=== PATIENT | female | born 1930 | race Two or more races ===

== ENCOUNTER 2016-12-22 15:06 | Inpatient (IN) | payer MEDICARE, MEDICAID ==
[~2016-12-22] VITALS: Ht 144.8 cm; Wt 95.3 kg
[2016-12-22 17:07] LABS: CLARITY URINE CLOUDY (CLEAR); COLOR URINE DARK YELLOW (YELLOW); GLUCOSE URINE NEGATIVE (NEGATIVE); KETONES URINE TRACE (NEGATIVE); LEUKOCYTE ESTERASE URINE 3+ (NEGATIVE); NITRITE URINE NEGATIVE (NEGATIVE); OCCULT BLOOD URINE 3+ (NEGATIVE); PH URINE 5.5 (4.5-8.0); PROTEIN URINE 1+ (NEGATIVE); SPECIFIC GRAVITY URINE 1.017 (1.005-1.030)
[2016-12-22 17:38] LABS: BASOPHILS % 0.3 % (0.0-2.0); EOSINOPHILS % 1.1 % (0.0-5.0); HEMATOCRIT. 31.6 % (36.0-48.0); HEMOGLOBIN. 10.4 g/dL (12.0-16.0); LYMPHOCYTES % 7.1 % (20.0-50.0); MEAN CORPUSCULAR HEMOGLOBIN 29.9 pg (28.0-32.0); MEAN CORPUSCULAR VOLUME 91.1 fL (81.0-99.0); MEAN PLATELET VOLUME 8.7 fl (7.4-10.4); MONOCYTES % 2.9 % (2.0-8.0); NEUTROPHILS % 88.6 % (40.0-76.0); PLATELET 123 x1000/uL (130-400); RED BLOOD CELL COUNT 3.47 mill/uL (4.2-5.4); RED CELL DISTRIBUTION WIDTH 14.7 % (11.6-14.6)
[2016-12-22 17:39] LABS: CHLORIDE 102 mEq/L (98-107)
[2016-12-22 17:40] LABS: INR 1.1; PROTHROMBIN TIME 11.4 sec
[2016-12-22 17:42] LABS: CARBON DIOXIDE 31 mEq/L (21-32)
[2016-12-22 17:48] LABS: TROPONIN I 0.14 ng/mL (0.00-0.04)
[2016-12-22] MEDS ORDERED: MAGNESIUM 2 G PREMIX 50 ML IV ONE (18:15)
[2016-12-22] MEDS ORDERED: POTASSIUM CHLORIDE 20MEQ TABLET SR PO ONE (18:15)
[2016-12-22] MEDS ORDERED: MAGNESIUM/ALUMINUM HYDROXIDE/SIMETHICONE 30ML UDC PO PRN (19:00)
[2016-12-22] MEDS ORDERED: CLONIDINE 0.1MG TABLET PO PRN (19:00)
[2016-12-22] MEDS ORDERED: HYDROMORPHONE HCL/PF 2MG/ML CPJ IV PRN (19:00)
[2016-12-22] MEDS ORDERED: DOCUSATE SODIUM 100MG CAPSULE PO PRN (19:00)
[2016-12-22] MEDS ORDERED: NA PHOS,M-B/NA PHOS,DI-BA ENEMA 118ML PR PRN (19:00)
[2016-12-22] MEDS ORDERED: LORAZEPAM 2MG/ML CPJ IV PRN (19:00)
[2016-12-22] MEDS ORDERED: IPRATROPIUM/ALBUTEROL 0.5-3(2.5)MG/3ML NEB INH PRN (19:00)
[2016-12-22] MEDS ORDERED: GUAIFENESIN 200MG/10ML SUGAR FREE UDC PO PRN (19:00)
[2016-12-22] MEDS ORDERED: DIPHENHYDRAMINE 50MG/ML VIAL IV PRN (19:00)
[2016-12-22] MEDS ORDERED: HYDROCODONE/ACETAMINOPHEN 5/325MG TABLET PO PRN (19:00)
[2016-12-22] MEDS ORDERED: CEFTRIAXONE 1 G PREMIX 50 ML IV ONE (19:00)
[2016-12-22] MEDS ORDERED: BENAZEPRIL 10MG TABLET PO NR (20:30)
[2016-12-22] MEDS ORDERED: FUROSEMIDE 20MG/2ML VIAL IV NR (21:00)
[2016-12-22] MEDS ORDERED: KCL 20MEQ/100ML PREMIX 100 ML IV NR (21:00)
[2016-12-22 22:17] VITALS: BP 138/78
[2016-12-22 22:18] VITALS: BP 138/78
[2016-12-22] MEDS ORDERED: LEVOFLOXACIN 500MG PREMIX 100 ML IV NR (23:00)
[2016-12-23] VITALS (13 sets, daily range): BP systolic 97–128; BP diastolic 57–77
[2016-12-23] MEDS ORDERED: MECL-109 PO (01:37)
[2016-12-23] MEDS ORDERED: TRAM50TA3 PO (01:37)
[2016-12-23] MEDS ORDERED: COR3 PO (01:37)
[2016-12-23] MEDS ORDERED: MONT10TA21 PO (01:37)
[2016-12-23] MEDS ORDERED: POTA20TA82 PO (01:37)
[2016-12-23] MEDS ORDERED: OMEP20CA10 PO (01:37)
[2016-12-23] MEDS ORDERED: LEVO25TA7 PO (01:37)
[2016-12-23] MEDS ORDERED: FURO-152 PO (01:37)
[2016-12-23] MEDS ORDERED: MELO-58 PO (01:37)
[2016-12-23] MEDS ORDERED: Metolazone PO (01:37)
[2016-12-23] MEDS ORDERED: METO-293 PO ×2 (01:37)
[2016-12-23] MEDS ORDERED: FURO-151 PO (01:37)
[2016-12-23] MEDS ORDERED: RANO500T3 PO (01:37)
[2016-12-23] MEDS ORDERED: HYDR-3992 PO (01:37)
[2016-12-23 02:04] LABS: TROPONIN I 0.11 ng/mL (0.00-0.04)
[2016-12-23 06:31] LABS: HEMATOCRIT. 26.8 % (36.0-48.0); HEMOGLOBIN. 8.7 g/dL (12.0-16.0); MEAN CORPUSCULAR HEMOGLOBIN 29.5 pg (28.0-32.0); MEAN CORPUSCULAR VOLUME 91.2 fL (81.0-99.0); MEAN PLATELET VOLUME 8.6 fl (7.4-10.4); PLATELET 99 x1000/uL (130-400); RED BLOOD CELL COUNT 2.94 mill/uL (4.2-5.4); RED CELL DISTRIBUTION WIDTH 14.7 % (11.6-14.6)
[2016-12-23] MEDS ORDERED: FUROSEMIDE 40MG/4ML VIAL IV SCH (07:15)
[2016-12-23 07:46] LABS: CARBON DIOXIDE 33 mEq/L (21-32); CHLORIDE 104 mEq/L (98-107); HDL CHOLESTEROL 79 mg/dL (40-59); LDL CHOLESTEROL 18 mg/dL (5-100); T4 FREE 0.95 ng/dL (0.76-1.46)
[2016-12-23] MEDS ORDERED: POTASSIUM CHLORIDE 20MEQ TABLET SR PO NR (08:15)
[2016-12-23] MEDS: ENOXAPARIN 30MG/0.3ML SYR SUBCUT SCH (08:36)
[2016-12-23] MEDS: ASPIRIN 81MG EC TABLET PO SCH (08:36)
[2016-12-23 11:28] LABS: PLATELET ESTIMATE DECREASED
[2016-12-23] MEDS: FUROSEMIDE 40MG/4ML VIAL IV SCH (16:54)
[2016-12-24] VITALS (12 sets, daily range): BP systolic 99–134; BP diastolic 58–80
[2016-12-24 00:45] LABS: CREATINE KINASE MB FRACTION 0.9 ng/mL (0.5-3.6); TROPONIN I 0.12 ng/mL (0.00-0.04)
[2016-12-24 08:22] LABS: BASOPHILS % 0.5 % (0.0-2.0); EOSINOPHILS % 1.2 % (0.0-5.0); HEMATOCRIT. 30.7 % (36.0-48.0); LYMPHOCYTES % 8.4 % (20.0-50.0); MEAN CORPUSCULAR HEMOGLOBIN 29.3 pg (28.0-32.0); MONOCYTES % 3.3 % (2.0-8.0); NEUTROPHILS % 86.6 % (40.0-76.0); PLATELET 72 x1000/uL (130-400); RED BLOOD CELL COUNT 3.41 mill/uL (4.2-5.4)
[2016-12-24] MEDS: ENOXAPARIN 30MG/0.3ML SYR SUBCUT SCH (08:38)
[2016-12-24] MEDS: FUROSEMIDE 40MG/4ML VIAL IV SCH ×3 (08:42→17:18)
[2016-12-24] MEDS: ASPIRIN 81MG EC TABLET PO SCH (08:42)
[2016-12-24 09:09] LABS: CREATINE KINASE MB FRACTION 0.7 ng/mL (0.5-3.6); TROPONIN I 0.12 ng/mL (0.00-0.04)
[2016-12-24] MEDS ORDERED: TRAMADOL 50MG TABLET PO SCH (13:15)
[2016-12-24] MEDS ORDERED: MECLIZINE 25MG TABLET PO PRN (13:15)
[2016-12-24] MEDS: LEVOTHYROXINE SODIUM 25MCG TABLET PO SCH (14:23)
[2016-12-24 15:14] LABS: CREATINE KINASE MB FRACTION 0.9 ng/mL (0.5-3.6); TROPONIN I 0.11 ng/mL (0.00-0.04)
[2016-12-24] MEDS ORDERED: MONTELUKAST SODIUM 10MG TABLET PO SCH (17:00)
[2016-12-24] MEDS: POTASSIUM CHLORIDE 20MEQ TABLET SR PO SCH (17:18)
[2016-12-24] MEDS: METOCLOPRAMIDE HCL 5MG TABLET PO SCH ×2 (17:18→21:04)
[2016-12-24] MEDS ORDERED: METOCLOPRAMIDE HCL 10MG TABLET PO SCH ×2 (17:30→21:00)
[2016-12-24] MEDS ORDERED: LEVOFLOXACIN 250MG PREMIX 50 ML IV SCH (18:00)
[2016-12-24] MEDS: MICONAZOLE NITRATE 2% OINT 71GM TOP SCH (21:04)
[2016-12-24] MEDS: CARVEDILOL 3.125 MG TABLET PO SCH (21:04)
[2016-12-24] MEDS: RANOLAZINE 500 MG TAB.SR.12H PO SCH (21:04)
[2016-12-25] VITALS (50 sets, daily range): BP systolic 90–140; BP diastolic 49–84
[2016-12-25] MEDS: DEXTROSE 5% WATER 1,000 ML IV SCH ×2 (00:22→22:03)
[2016-12-25 06:30] LABS: BASOPHILS % 0.5 % (0.0-2.0); EOSINOPHILS % 1.2 % (0.0-5.0); HEMATOCRIT. 27.8 % (36.0-48.0); HEMOGLOBIN. 9.1 g/dL (12.0-16.0); MEAN CORPUSCULAR HEMOGLOBIN 29.8 pg (28.0-32.0); MEAN CORPUSCULAR VOLUME 90.6 fL (81.0-99.0); MEAN PLATELET VOLUME 9.5 fl (7.4-10.4); MONOCYTES % 3.6 % (2.0-8.0); NEUTROPHILS % 83.7 % (40.0-76.0); PLATELET 53 x1000/uL (130-400); RED BLOOD CELL COUNT 3.07 mill/uL (4.2-5.4); RED CELL DISTRIBUTION WIDTH 15.1 % (11.6-14.6)
[2016-12-25] MEDS ORDERED: OMEPRAZOLE 20MG CAPSULE EXTENDED RELEASE PO SCH (07:30)
[2016-12-25] MEDS: FUROSEMIDE 40MG/4ML VIAL IV SCH ×3 (09:33→17:58)
[2016-12-25] MEDS: ACETAMINOPHEN 325MG TABLET PO PRN (09:33)
[2016-12-25] MEDS: METOCLOPRAMIDE HCL 5MG TABLET PO SCH (09:34)
[2016-12-25] MEDS: POTASSIUM CHLORIDE 20MEQ TABLET SR PO SCH ×2 (09:34→17:00)
[2016-12-25] MEDS: FAMOTIDINE 20MG TABLET PO SCH (09:34)
[2016-12-25] MEDS: LEVOTHYROXINE SODIUM 25MCG TABLET PO SCH (09:34)
[2016-12-25] MEDS: ASPIRIN 81MG EC TABLET PO SCH (09:34)
[2016-12-25] MEDS: CARVEDILOL 3.125 MG TABLET PO SCH ×2 (09:34→20:41)
[2016-12-25] MEDS: RANOLAZINE 500 MG TAB.SR.12H PO SCH ×2 (09:35→20:41)
[2016-12-25] MEDS: MICONAZOLE NITRATE 2% OINT 71GM TOP SCH ×2 (09:35→20:33)
[2016-12-25 11:26] LABS: BG BASE EXCESS 2.2 mmol/L (-2.0-2.0); BG CARBOXYHEMOGLOBIN 0.3 % (0.5-1.5); BG DEOXYHEMOGLOBIN 1.8 % (0.0-5.0); BG FRACTION INSPIRED OXYGEN 28; BG HCO3 ACT 29.4 mmol/L (22.0-26.0); BG METHEMOGLOBIN 0.3 % (0.0-1.5); BG OXYGEN SATURATION 98.2 % (92.0-98.5); BG OXYHEMOGLOBIN 97.6 % (94.0-97.0); BG PCO2 60.5 mmHg (35.0-45.0); BG PH 7.305 (7.350-7.450); BG PO2 138.2 mmHg (75.0-100.0); BG SAMPLE SITE RIGHT RADIAL; BG TOTAL HEMOGLOBIN 9.9 g/dL (12.0-18.0); BG VENT MODE NASAL CANNULA
[2016-12-25] MEDS: METHYLPREDNISOLONE SOD SUCC 40 MG/ML VIAL IV SCH ×2 (12:54→20:33)
[2016-12-25] MEDS: IPRATROPIUM/ALBUTEROL 0.5-3(2.5)MG/3ML NEB HHN SCH ×2 (13:19→19:53)
[2016-12-25] MEDS: COLISTIMETHATE SODIUM IV SCH (15:20)
[2016-12-25] MEDS: SODIUM CHLORIDE 0.9% IV SCH (15:20)
[2016-12-25] MEDS: MEROPENEM 500MG in NORMAL SALINE 50ML IV SCH (15:55)
[2016-12-25] MEDS ORDERED: PHENYLEPHRINE 40 MG in DEXT 5% WATER 246 ML IV PRN (16:30)
[2016-12-25 20:29] LABS: BG BASE EXCESS -1.4 mmol/L (-2.0-2.0); BG BILEVEL POS AIRWAY PRESSURE 15/5; BG CARBOXYHEMOGLOBIN 0.3 % (0.5-1.5); BG DEOXYHEMOGLOBIN 2.1 % (0.0-5.0); BG FRACTION INSPIRED OXYGEN 40; BG HCO3 ACT 26.5 mmol/L (22.0-26.0); BG OXYGEN SATURATION 97.9 % (92.0-98.5); BG OXYHEMOGLOBIN 97.6 % (94.0-97.0); BG PCO2 60.5 mmHg (35.0-45.0); BG PH 7.259 (7.350-7.450); BG PO2 128.5 mmHg (75.0-100.0); BG SAMPLE SITE RIGHT RADIAL; BG TOTAL HEMOGLOBIN 11.4 g/dL (12.0-18.0); BG VENT MODE MASK - BIPAP
[2016-12-26] VITALS (48 sets, daily range): BP systolic 102–133; BP diastolic 49–71
[2016-12-26] MEDS: IPRATROPIUM/ALBUTEROL 0.5-3(2.5)MG/3ML NEB HHN SCH ×4 (01:56→20:30)
[2016-12-26] MEDS: MEROPENEM 500MG in NORMAL SALINE 50ML IV SCH ×2 (02:20→14:53)
[2016-12-26] MEDS: SODIUM CHLORIDE 0.9% IV SCH ×2 (02:58→15:39)
[2016-12-26] MEDS: COLISTIMETHATE SODIUM IV SCH ×2 (02:58→15:39)
[2016-12-26] MEDS: METHYLPREDNISOLONE SOD SUCC 40 MG/ML VIAL IV SCH ×3 (03:54→20:30)
[2016-12-26 05:37] LABS: BASOPHILS % 0.1 % (0.0-2.0); HEMATOCRIT. 28.2 % (36.0-48.0); HEMOGLOBIN. 9.4 g/dL (12.0-16.0); LYMPHOCYTES % 9.8 % (20.0-50.0); MEAN CORPUSCULAR HEMOGLOBIN 30.3 pg (28.0-32.0); MONOCYTES % 1.3 % (2.0-8.0); NEUTROPHILS % 88.8 % (40.0-76.0); RED CELL DISTRIBUTION WIDTH 14.9 % (11.6-14.6)
[2016-12-26] MEDS: LEVOTHYROXINE SODIUM 75MCG TABLET PO SCH (05:47)
[2016-12-26 06:55] LABS: MEAN PLATELET VOLUME 9.5 fl (7.4-10.4); PLATELET 38 x1000/uL (130-400)
[2016-12-26 08:28] LABS: BG BASE EXCESS 3.4 mmol/L (-2.0-2.0); BG BILEVEL POS AIRWAY PRESSURE ST=15/5; BG CARBOXYHEMOGLOBIN 0.3 % (0.5-1.5); BG DEOXYHEMOGLOBIN 2.1 % (0.0-5.0); BG FRACTION INSPIRED OXYGEN 40; BG HCO3 ACT 30.3 mmol/L (22.0-26.0); BG METHEMOGLOBIN 0.3 % (0.0-1.5); BG OXYGEN SATURATION 97.9 % (92.0-98.5); BG OXYHEMOGLOBIN 97.3 % (94.0-97.0); BG PCO2 58.6 mmHg (35.0-45.0); BG PH 7.331 (7.350-7.450); BG PO2 122.3 mmHg (75.0-100.0); BG PRESSURE SUPPORT 10; BG SAMPLE SITE LEFT BRACHIAL; BG TOTAL HEMOGLOBIN 9.7 g/dL (12.0-18.0); BG VENT MODE MASK - BIPAP; BG VENT RATE 18 set
[2016-12-26] MEDS: FAMOTIDINE 20MG TABLET PO SCH (08:40)
[2016-12-26] MEDS: ASPIRIN 81MG EC TABLET PO SCH (08:40)
[2016-12-26] MEDS: POTASSIUM CHLORIDE 20MEQ TABLET SR PO SCH ×2 (08:40→17:37)
[2016-12-26] MEDS: FUROSEMIDE 40MG/4ML VIAL IV SCH ×3 (08:41→17:37)
[2016-12-26] MEDS: CARVEDILOL 3.125 MG TABLET PO SCH ×2 (08:41→21:00)
[2016-12-26 09:03] LABS: D-DIMER 1.68 mg/L FEU (<0.50); INR 1.1; PROTHROMBIN TIME 11.6 sec
[2016-12-26] MEDS: THIAMINE HCL 100MG TABLET PO SCH ×2 (12:47→17:37)
[2016-12-26] MEDS: RANOLAZINE 500 MG TAB.SR.12H PO SCH ×2 (12:48→21:00)
[2016-12-26] MEDS: MICONAZOLE NITRATE 2% OINT 71GM TOP SCH ×2 (17:38→21:00)
[2016-12-26] MEDS: DEXTROSE 5% WATER 1,000 ML IV SCH (23:30)
[2016-12-27] VITALS (48 sets, daily range): BP systolic 113–141; BP diastolic 35–79
[2016-12-27] MEDS: IPRATROPIUM/ALBUTEROL 0.5-3(2.5)MG/3ML NEB HHN SCH ×4 (02:00→20:09)
[2016-12-27] MEDS: MEROPENEM 500MG in NORMAL SALINE 50ML IV SCH ×2 (03:18→14:34)
[2016-12-27] MEDS: METHYLPREDNISOLONE SOD SUCC 40 MG/ML VIAL IV SCH ×3 (04:30→20:46)
[2016-12-27 04:41] LABS: BASOPHILS % 0.2 % (0.0-2.0); HEMOGLOBIN. 9.6 g/dL (12.0-16.0); LYMPHOCYTES % 9.8 % (20.0-50.0); MEAN CORPUSCULAR HEMOGLOBIN 30.1 pg (28.0-32.0); MEAN CORPUSCULAR VOLUME 90.8 fL (81.0-99.0); MEAN PLATELET VOLUME 10.9 fl (7.4-10.4); MONOCYTES % 8.3 % (2.0-8.0); NEUTROPHILS % 81.7 % (40.0-76.0); PLATELET 56 x1000/uL (130-400); RED CELL DISTRIBUTION WIDTH 14.6 % (11.6-14.6)
[2016-12-27] MEDS: LEVOTHYROXINE SODIUM 75MCG TABLET PO SCH ×2 (06:27→10:19)
[2016-12-27] MEDS ORDERED: LACTULOSE 20G/30ML UDC PO SCH (07:00)
[2016-12-27 08:04] LABS: BG BASE EXCESS 2.4 mmol/L (-2.0-2.0); BG DEOXYHEMOGLOBIN 2.3 % (0.0-5.0); BG FRACTION INSPIRED OXYGEN 28; BG HCO3 ACT 28.8 mmol/L (22.0-26.0); BG OXYGEN SATURATION 97.7 % (92.0-98.5); BG OXYHEMOGLOBIN 97.7 % (94.0-97.0); BG PCO2 54.4 mmHg (35.0-45.0); BG PH 7.342 (7.350-7.450); BG PO2 114.3 mmHg (75.0-100.0); BG SAMPLE SITE RIGHT RADIAL; BG TOTAL HEMOGLOBIN 9.8 g/dL (12.0-18.0); BG VENT MODE NASAL CANNULA
[2016-12-27] MEDS: MICONAZOLE NITRATE 2% OINT 71GM TOP SCH ×2 (09:00→20:47)
[2016-12-27] MEDS ORDERED: METOLAZONE 2.5MG TABLET PO SCH (09:30)
[2016-12-27] MEDS: CARVEDILOL 3.125 MG TABLET PO SCH ×2 (10:10→20:46)
[2016-12-27] MEDS: FUROSEMIDE 100MG/10ML VIAL IV SCH ×3 (10:10→16:30)
[2016-12-27] MEDS: FAMOTIDINE 20MG TABLET PO SCH (10:11)
[2016-12-27] MEDS: THIAMINE HCL 100MG TABLET PO SCH ×2 (10:11→16:30)
[2016-12-27] MEDS: ASPIRIN 81MG EC TABLET PO SCH (10:11)
[2016-12-27] MEDS ORDERED: METOLAZONE 5MG TABLET PO SCH (11:22)
[2016-12-27 12:56] LABS: AMMONIA 12 uMol/L (<32)
[2016-12-27 13:07] LABS: T4 FREE 0.71 ng/dL (0.76-1.46)
[2016-12-27 13:47] LABS: FOLIC ACID (FOLATE) SERUM 4.6 ng/mL (>5.38)
[2016-12-27] MEDS ORDERED: SODIUM CHLORIDE 0.9% IV NR (15:00)
[2016-12-27] MEDS ORDERED: ERTAPENEM SODIUM IV NR (15:00)
[2016-12-27] MEDS: ONDANSETRON HCL 4MG/2ML VIAL IV PRN (22:08)
[2016-12-27] MEDS ORDERED: DEXTROSE 5% WATER 1,000 ML IV SCH (23:45)
[2016-12-28] VITALS (12 sets, daily range): BP systolic 114–128; BP diastolic 56–70
[2016-12-28] MEDS: IPRATROPIUM/ALBUTEROL 0.5-3(2.5)MG/3ML NEB HHN SCH ×4 (02:15→20:37)
[2016-12-28] MEDS ORDERED: COLISTIMETHATE SODIUM 130 MG in SODIUM CHLORIDE 0.9% 100 ML IV SCH (03:00)
[2016-12-28] MEDS: MEROPENEM 500MG in NORMAL SALINE 50ML IV SCH ×2 (03:00→14:52)
[2016-12-28] MEDS: DEXTROSE 5% WATER 1,000 ML IV SCH (03:00)
[2016-12-28] MEDS: METHYLPREDNISOLONE SOD SUCC 40 MG/ML VIAL IV SCH ×3 (04:54→20:05)
[2016-12-28] MEDS: LEVOTHYROXINE SODIUM 75MCG TABLET PO SCH (06:39)
[2016-12-28] MEDS: CARVEDILOL 3.125 MG TABLET PO SCH ×2 (08:40→21:12)
[2016-12-28] MEDS: ASPIRIN 81MG EC TABLET PO SCH (08:40)
[2016-12-28] MEDS: FUROSEMIDE 100MG/10ML VIAL IV SCH ×3 (08:40→17:24)
[2016-12-28] MEDS: FAMOTIDINE 20MG TABLET PO SCH (08:40)
[2016-12-28] MEDS: THIAMINE HCL 100MG TABLET PO SCH ×2 (08:40→17:24)
[2016-12-28] MEDS: MICONAZOLE NITRATE 2% OINT 71GM TOP SCH ×2 (08:41→20:05)
[2016-12-28] MEDS: METOLAZONE 5MG TABLET PO SCH ×2 (10:24→17:25)
[2016-12-28] MEDS: ERTAPENEM SODIUM IV SCH (14:13)
[2016-12-28] MEDS: SODIUM CHLORIDE 0.9% IV SCH (14:13)
[2016-12-29] VITALS (12 sets, daily range): BP systolic 117–134; BP diastolic 61–84
[2016-12-29] MEDS: IPRATROPIUM/ALBUTEROL 0.5-3(2.5)MG/3ML NEB HHN SCH ×4 (02:03→20:53)
[2016-12-29] MEDS: MEROPENEM 500MG in NORMAL SALINE 50ML IV SCH ×2 (03:18→14:51)
[2016-12-29] MEDS: METHYLPREDNISOLONE SOD SUCC 40 MG/ML VIAL IV SCH ×3 (04:49→20:35)
[2016-12-29 05:20] LABS: CLARITY URINE CLEAR (CLEAR); COLOR URINE YELLOW (YELLOW); GLUCOSE URINE NEGATIVE (NEGATIVE); KETONES URINE NEGATIVE (NEGATIVE); LEUKOCYTE ESTERASE URINE TRACE (NEGATIVE); NITRITE URINE NEGATIVE (NEGATIVE); OCCULT BLOOD URINE 1+ (NEGATIVE); PROTEIN URINE NEGATIVE (NEGATIVE); SPECIFIC GRAVITY URINE 1.013 (1.005-1.030); UROBILINOGEN URINE 0.2 E.U./dL (0.2-1.0)
[2016-12-29] MEDS: LEVOTHYROXINE SODIUM 75MCG TABLET PO SCH (06:23)
[2016-12-29 08:34] LABS: HEMATOCRIT. 27.2 % (36.0-48.0); HEMOGLOBIN. 9.2 g/dL (12.0-16.0); MEAN CORPUSCULAR HEMOGLOBIN 30.2 pg (28.0-32.0); MEAN CORPUSCULAR VOLUME 89.8 fL (81.0-99.0); MEAN PLATELET VOLUME 9.9 fl (7.4-10.4); PLATELET 61 x1000/uL (130-400); RED BLOOD CELL COUNT 3.03 mill/uL (4.2-5.4); RED CELL DISTRIBUTION WIDTH 14.5 % (11.6-14.6)
[2016-12-29] MEDS: CARVEDILOL 3.125 MG TABLET PO SCH ×2 (08:34→20:35)
[2016-12-29] MEDS: FAMOTIDINE 20MG TABLET PO SCH (08:34)
[2016-12-29] MEDS: FUROSEMIDE 100MG/10ML VIAL IV SCH ×3 (08:34→16:52)
[2016-12-29] MEDS: THIAMINE HCL 100MG TABLET PO SCH ×2 (08:34→17:53)
[2016-12-29] MEDS: ASPIRIN 81MG EC TABLET PO SCH (08:50)
[2016-12-29 09:03] LABS: PLATELET ESTIMATE DECREASED
[2016-12-29] MEDS: MICONAZOLE NITRATE 2% OINT 71GM TOP SCH ×2 (09:17→20:36)
[2016-12-29] MEDS: METOLAZONE 5MG TABLET PO SCH ×2 (09:17→17:53)
[2016-12-29] MEDS: ERTAPENEM SODIUM IV SCH (15:43)
[2016-12-29] MEDS: SODIUM CHLORIDE 0.9% IV SCH (15:43)
[2016-12-30] VITALS (13 sets, daily range): BP systolic 117–156; BP diastolic 36–77
[2016-12-30] MEDS: IPRATROPIUM/ALBUTEROL 0.5-3(2.5)MG/3ML NEB HHN SCH ×4 (00:37→21:12)
[2016-12-30] MEDS: MEROPENEM 500MG in NORMAL SALINE 50ML IV SCH ×2 (03:53→14:49)
[2016-12-30] MEDS: METHYLPREDNISOLONE SOD SUCC 40 MG/ML VIAL IV SCH (03:53)
[2016-12-30 06:16] LABS: HEMATOCRIT. 27.9 % (36.0-48.0); HEMOGLOBIN. 9.3 g/dL (12.0-16.0); MEAN CORPUSCULAR HEMOGLOBIN 29.8 pg (28.0-32.0); MEAN CORPUSCULAR VOLUME 89.7 fL (81.0-99.0); MEAN PLATELET VOLUME 9.6 fl (7.4-10.4); PLATELET 88 x1000/uL (130-400); RED BLOOD CELL COUNT 3.11 mill/uL (4.2-5.4); RED CELL DISTRIBUTION WIDTH 14.5 % (11.6-14.6)
[2016-12-30] MEDS: LEVOTHYROXINE SODIUM 75MCG TABLET PO SCH (06:33)
[2016-12-30] MEDS: FUROSEMIDE 100MG/10ML VIAL IV SCH ×3 (10:56→19:04)
[2016-12-30] MEDS: ASPIRIN 81MG EC TABLET PO SCH (10:56)
[2016-12-30] MEDS: THIAMINE HCL 100MG TABLET PO SCH ×2 (10:56→19:04)
[2016-12-30] MEDS: FAMOTIDINE 20MG TABLET PO SCH (10:57)
[2016-12-30] MEDS: METOLAZONE 5MG TABLET PO SCH ×2 (10:57→19:04)
[2016-12-30] MEDS: CARVEDILOL 3.125 MG TABLET PO SCH ×2 (10:57→21:24)
[2016-12-30 11:53] LABS: PLATELET ESTIMATE DECREASED
[2016-12-30] MEDS: MICONAZOLE NITRATE 2% OINT 71GM TOP SCH ×2 (12:04→21:24)
[2016-12-30 12:48] LABS: BG BASE EXCESS 4.9 mmol/L (-2.0-2.0); BG CARBOXYHEMOGLOBIN 0.3 % (0.5-1.5); BG DEOXYHEMOGLOBIN 7.1 % (0.0-5.0); BG FRACTION INSPIRED OXYGEN 34; BG HCO3 ACT 32.2 mmol/L (22.0-26.0); BG METHEMOGLOBIN 0.3 % (0.0-1.5); BG OXYGEN SATURATION 92.9 % (92.0-98.5); BG OXYHEMOGLOBIN 92.3 % (94.0-97.0); BG PCO2 64.3 mmHg (35.0-45.0); BG PH 7.318 (7.350-7.450); BG PO2 71.6 mmHg (75.0-100.0); BG SAMPLE SITE RIGHT RADIAL; BG TOTAL HEMOGLOBIN 9.9 g/dL (12.0-18.0); BG VENT MODE NASAL CANNULA
[2016-12-30] MEDS: ERTAPENEM SODIUM IV SCH (15:56)
[2016-12-30] MEDS: SODIUM CHLORIDE 0.9% IV SCH (15:56)
[2016-12-31] VITALS (13 sets, daily range): BP systolic 96–138; BP diastolic 43–84
[2016-12-31] MEDS: MEROPENEM 500MG in NORMAL SALINE 50ML IV SCH ×2 (02:10→16:13)
[2016-12-31] MEDS: IPRATROPIUM/ALBUTEROL 0.5-3(2.5)MG/3ML NEB HHN SCH ×4 (02:36→20:26)
[2016-12-31] MEDS: LEVOTHYROXINE SODIUM 75MCG TABLET PO SCH (06:35)
[2016-12-31] MEDS: FUROSEMIDE 40MG/4ML VIAL IV SCH ×3 (08:30→17:32)
[2016-12-31] MEDS: ASPIRIN 81MG EC TABLET PO SCH (08:31)
[2016-12-31] MEDS: METOLAZONE 5MG TABLET PO SCH ×2 (08:31→17:32)
[2016-12-31] MEDS: CARVEDILOL 3.125 MG TABLET PO SCH ×2 (08:31→20:42)
[2016-12-31] MEDS: THIAMINE HCL 100MG TABLET PO SCH ×2 (08:31→17:32)
[2016-12-31] MEDS: MICONAZOLE NITRATE 2% OINT 71GM TOP SCH ×2 (08:32→20:44)
[2016-12-31] MEDS: FAMOTIDINE 20MG TABLET PO SCH (08:32)
[2016-12-31 08:37] LABS: HEMATOCRIT. 27.3 % (36.0-48.0); HEMOGLOBIN. 8.9 g/dL (12.0-16.0); MEAN CORPUSCULAR HEMOGLOBIN 29.3 pg (28.0-32.0); MEAN CORPUSCULAR VOLUME 89.9 fL (81.0-99.0); MEAN PLATELET VOLUME 9.5 fl (7.4-10.4); PLATELET 108 x1000/uL (130-400); RED BLOOD CELL COUNT 3.04 mill/uL (4.2-5.4)
[2016-12-31] MEDS: PREDNISONE 20MG TABLET PO SCH (08:41)
[2016-12-31 11:38] LABS: BG BASE EXCESS 8.7 mmol/L (-2.0-2.0); BG CARBOXYHEMOGLOBIN 0.3 % (0.5-1.5); BG FRACTION INSPIRED OXYGEN 32; BG HCO3 ACT 35.9 mmol/L (22.0-26.0); BG METHEMOGLOBIN 0.1 % (0.0-1.5); BG OXYHEMOGLOBIN 94.6 % (94.0-97.0); BG PCO2 66.4 mmHg (35.0-45.0); BG PH 7.351 (7.350-7.450); BG SAMPLE SITE LEFT BRACHIAL; BG TOTAL HEMOGLOBIN 9.7 g/dL (12.0-18.0); BG VENT MODE NASAL CANNULA
[2016-12-31] MEDS: SODIUM CHLORIDE 0.9% IV SCH (14:42)
[2016-12-31] MEDS: ERTAPENEM SODIUM IV SCH (14:42)
[2016-12-31 16:57] LABS: NUCLEATED RED BLOOD CELLS 1 /100 WBC; PLATELET ESTIMATE DECREASED
[2016-12-31] MEDS: DEXTROSE 5% WATER 1,000 ML IV SCH (23:46)
[2017-01-01] VITALS (12 sets, daily range): BP systolic 115–136; BP diastolic 55–98
[2017-01-01] MEDS: IPRATROPIUM/ALBUTEROL 0.5-3(2.5)MG/3ML NEB HHN SCH ×4 (02:00→20:06)
[2017-01-01] MEDS: MEROPENEM 500MG in NORMAL SALINE 50ML IV SCH ×2 (03:00→16:02)
[2017-01-01 07:09] LABS: HEMOGLOBIN. 8.8 g/dL (12.0-16.0); MEAN CORPUSCULAR HEMOGLOBIN 29.9 pg (28.0-32.0); MEAN CORPUSCULAR VOLUME 88.8 fL (81.0-99.0); MEAN PLATELET VOLUME 9.1 fl (7.4-10.4); PLATELET 125 x1000/uL (130-400); RED BLOOD CELL COUNT 2.93 mill/uL (4.2-5.4)
[2017-01-01] MEDS: LEVOTHYROXINE SODIUM 75MCG TABLET PO SCH (07:30)
[2017-01-01] MEDS: THIAMINE HCL 100MG TABLET PO SCH ×2 (09:00→17:00)
[2017-01-01] MEDS: FAMOTIDINE 20MG TABLET PO SCH (09:00)
[2017-01-01] MEDS: PREDNISONE 20MG TABLET PO SCH (09:00)
[2017-01-01] MEDS: CARVEDILOL 3.125 MG TABLET PO SCH ×2 (09:00→20:21)
[2017-01-01] MEDS: ASPIRIN 81MG EC TABLET PO SCH (09:00)
[2017-01-01] MEDS: METOLAZONE 5MG TABLET PO SCH ×2 (09:30→17:30)
[2017-01-01] MEDS: FUROSEMIDE 40MG/4ML VIAL IV SCH ×3 (09:35→17:47)
[2017-01-01] MEDS: MICONAZOLE NITRATE 2% OINT 71GM TOP SCH ×2 (09:36→20:21)
[2017-01-01 10:06] LABS: BG BASE EXCESS 11.1 mmol/L (-2.0-2.0); BG CARBOXYHEMOGLOBIN 0.3 % (0.5-1.5); BG DEOXYHEMOGLOBIN 6.2 % (0.0-5.0); BG FRACTION INSPIRED OXYGEN 32; BG HCO3 ACT 38.4 mmol/L (22.0-26.0); BG METHEMOGLOBIN 0.2 % (0.0-1.5); BG OXYGEN SATURATION 93.8 % (92.0-98.5); BG OXYHEMOGLOBIN 93.3 % (94.0-97.0); BG PCO2 68.5 mmHg (35.0-45.0); BG PH 7.367 (7.350-7.450); BG PO2 74.7 mmHg (75.0-100.0); BG SAMPLE SITE RIGHT RADIAL; BG TOTAL HEMOGLOBIN 9.9 g/dL (12.0-18.0); BG VENT MODE NASAL CANNULA
[2017-01-01 12:41] LABS: NUCLEATED RED BLOOD CELLS 2 /100 WBC; PLATELET ESTIMATE NORMAL
[2017-01-01] MEDS: ERTAPENEM SODIUM IV SCH (16:02)
[2017-01-01] MEDS: SODIUM CHLORIDE 0.9% IV SCH (16:02)
[2017-01-01] MEDS: DEXTROSE 5% WATER 1,000 ML IV SCH (23:36)
[2017-01-02] VITALS (12 sets, daily range): BP systolic 118–133; BP diastolic 53–75
[2017-01-02] MEDS: IPRATROPIUM/ALBUTEROL 0.5-3(2.5)MG/3ML NEB HHN SCH ×4 (03:28→20:54)
[2017-01-02] MEDS: LEVOTHYROXINE SODIUM 75MCG TABLET PO SCH (06:09)
[2017-01-02 06:25] LABS: CLARITY URINE CLEAR (CLEAR); COLOR URINE YELLOW (YELLOW); GLUCOSE URINE NEGATIVE (NEGATIVE); KETONES URINE NEGATIVE (NEGATIVE); LEUKOCYTE ESTERASE URINE 1+ (NEGATIVE); NITRITE URINE NEGATIVE (NEGATIVE); OCCULT BLOOD URINE 1+ (NEGATIVE); PROTEIN URINE TRACE (NEGATIVE); SPECIFIC GRAVITY URINE 1.012 (1.005-1.030); UROBILINOGEN URINE 0.2 E.U./dL (0.2-1.0)
[2017-01-02 06:54] LABS: HEMOGLOBIN. 8.4 g/dL (12.0-16.0); MEAN CORPUSCULAR HEMOGLOBIN 29.9 pg (28.0-32.0); MEAN CORPUSCULAR VOLUME 88.5 fL (81.0-99.0); MEAN PLATELET VOLUME 9.1 fl (7.4-10.4); PLATELET 152 x1000/uL (130-400); RED BLOOD CELL COUNT 2.82 mill/uL (4.2-5.4); RED CELL DISTRIBUTION WIDTH 14.2 % (11.6-14.6)
[2017-01-02] MEDS: CARVEDILOL 3.125 MG TABLET PO SCH (08:07)
[2017-01-02] MEDS: FAMOTIDINE 20MG TABLET PO SCH (08:08)
[2017-01-02] MEDS: ASPIRIN 81MG EC TABLET PO SCH (08:08)
[2017-01-02] MEDS: THIAMINE HCL 100MG TABLET PO SCH (08:08)
[2017-01-02] MEDS: PREDNISONE 20MG TABLET PO SCH (08:08)
[2017-01-02] MEDS ORDERED: POTASSIUM CHLORIDE 20MEQ TABLET SR PO SCH (09:00)
[2017-01-02] MEDS: METOLAZONE 5MG TABLET PO SCH (09:09)
[2017-01-02] MEDS ORDERED: POTASSIUM CHLORIDE INJ 40 MEQ in DEXT 5% WATER 250 ML IV SCH (10:00)
[2017-01-02] MEDS: MICONAZOLE NITRATE 2% OINT 71GM TOP SCH ×2 (10:01→20:41)
[2017-01-02] MEDS: FUROSEMIDE 40MG/4ML VIAL IV SCH ×3 (10:01→16:38)
[2017-01-02 11:14] LABS: BG BASE EXCESS 9.6 mmol/L (-2.0-2.0); BG CARBOXYHEMOGLOBIN 0.2 % (0.5-1.5); BG DEOXYHEMOGLOBIN 6.3 % (0.0-5.0); BG HCO3 ACT 36.3 mmol/L (22.0-26.0); BG METHEMOGLOBIN 0.3 % (0.0-1.5); BG OXYGEN SATURATION 93.7 % (92.0-98.5); BG OXYHEMOGLOBIN 93.2 % (94.0-97.0); BG PCO2 62.7 mmHg (35.0-45.0); BG PH 7.381 (7.350-7.450); BG PO2 75.2 mmHg (75.0-100.0); BG SAMPLE SITE RIGHT RADIAL; BG TOTAL HEMOGLOBIN 9.9 g/dL (12.0-18.0); BG VENT MODE NASAL CANNULA
[2017-01-02] MEDS ORDERED: ALBUMIN HUMAN 25GM/100ML (25%) IV NR (11:45)
[2017-01-02 12:56] LABS: PLATELET ESTIMATE NORMAL
[2017-01-02] MEDS ORDERED: KCL 20MEQ/100ML PREMIX 100 ML IV NR (13:00)
[2017-01-02] MEDS ORDERED: LIDOCAINE HCL 1% 20ML VIAL (Pyxis) INJ ONE (13:14)
[2017-01-02] MEDS ORDERED: SODIUM BICARBONATE 4% (2.4MEQ) 5ML VIAL IV ONE (13:16)
[2017-01-02 15:09] LABS: ANTI-NUCLEAR ANTIBODIES DIRECT Positive (Negative)
[2017-01-02] MEDS: DEXTROSE 5% WATER 1,000 ML IV SCH (23:54)
[2017-01-03] VITALS (12 sets, daily range): BP systolic 119–147; BP diastolic 55–80
[2017-01-03] MEDS: IPRATROPIUM/ALBUTEROL 0.5-3(2.5)MG/3ML NEB HHN SCH ×4 (01:09→20:41)
[2017-01-03 06:21] LABS: HEMATOCRIT. 26.3 % (36.0-48.0); HEMOGLOBIN. 8.5 g/dL (12.0-16.0); MEAN CORPUSCULAR VOLUME 89.5 fL (81.0-99.0); MEAN PLATELET VOLUME 8.6 fl (7.4-10.4); PLATELET 214 x1000/uL (130-400); RED BLOOD CELL COUNT 2.94 mill/uL (4.2-5.4); RED CELL DISTRIBUTION WIDTH 14.7 % (11.6-14.6)
[2017-01-03] MEDS: ASPIRIN 81MG EC TABLET PO SCH (08:59)
[2017-01-03] MEDS: FAMOTIDINE 20MG/2ML VIAL IV SCH (08:59)
[2017-01-03] MEDS: FUROSEMIDE 40MG/4ML VIAL IV SCH ×3 (08:59→17:44)
[2017-01-03] MEDS: MICONAZOLE NITRATE 2% OINT 71GM TOP SCH ×2 (09:01→21:08)
[2017-01-03 09:08] LABS: PTT-LA 45.3 sec (0.0-43.6)
[2017-01-03 09:08] LABS: ANTI-MYELOPEROXIDASE AB < 9.0 U/mL (0.0-9.0); ANTI-PROTEINASE 3 ABS < 3.5 U/mL (0.0-3.5)
[2017-01-03 09:29] LABS: PLATELET ESTIMATE NORMAL
[2017-01-03] MEDS: LEVOTHYROXINE SODIUM 100 MCG/ VIAL IV SCH (12:45)
[2017-01-03 14:20] LABS: ATYPICAL P-ANCA <1:20 titer (Neg:<1:20); CYTOPLASMIC C-ANCA <1:20 titer (Neg:<1:20); PERINUCLEAR P-ANCA <1:20 titer (Neg:<1:20)
[2017-01-03] MEDS: DEXTROSE 5% WATER 1,000 ML IV SCH (23:00)
[2017-01-04] VITALS (12 sets, daily range): BP systolic 112–151; BP diastolic 48–70
[2017-01-04] MEDS: IPRATROPIUM/ALBUTEROL 0.5-3(2.5)MG/3ML NEB HHN SCH ×4 (01:21→21:32)
[2017-01-04 05:15] LABS: DRVVT LA 60.3 sec (0.0-47.0); DRVVT MIX LA 46.9 sec (0.0-47.0); HEXAGONAL PHASE PHOSPHOLIPID 6 sec (0-11); LUPUS ANTICOAG INTERPRETATION Comment: (.); PTT-LA MIX 43.2 sec (0.0-40.6)
[2017-01-04] MEDS: FAMOTIDINE 20MG/2ML VIAL IV SCH (08:23)
[2017-01-04] MEDS: MICONAZOLE NITRATE 2% OINT 71GM TOP SCH ×2 (08:23→21:19)
[2017-01-04] MEDS: ASPIRIN 81MG EC TABLET PO SCH (08:23)
[2017-01-04] MEDS: LEVOTHYROXINE SODIUM 100 MCG/ VIAL IV SCH (08:23)
[2017-01-04] MEDS: FUROSEMIDE 40MG/4ML VIAL IV SCH ×3 (08:23→16:29)
[2017-01-04] MEDS: ONDANSETRON HCL 4MG/2ML VIAL IV PRN (21:19)
[2017-01-05] VITALS (12 sets, daily range): BP systolic 102–133; BP diastolic 48–79
[2017-01-05] MEDS: IPRATROPIUM/ALBUTEROL 0.5-3(2.5)MG/3ML NEB HHN SCH ×4 (00:56→20:03)
[2017-01-05] MEDS: ASPIRIN 81MG EC TABLET PO SCH (08:27)
[2017-01-05] MEDS: MICONAZOLE NITRATE 2% OINT 71GM TOP SCH ×2 (08:27→20:14)
[2017-01-05] MEDS: FAMOTIDINE 20MG/2ML VIAL IV SCH (08:27)
[2017-01-05] MEDS: LEVOTHYROXINE SODIUM 100 MCG/ VIAL IV SCH (08:27)
[2017-01-05] MEDS: FUROSEMIDE 40MG/4ML VIAL IV SCH ×3 (08:27→16:53)
[2017-01-05] MEDS: DEXTROSE 5% WATER 1,000 ML IV SCH (19:45)
[2017-01-06] VITALS (17 sets, daily range): BP systolic 106–149; BP diastolic 49–69
[2017-01-06] MEDS: IPRATROPIUM/ALBUTEROL 0.5-3(2.5)MG/3ML NEB HHN SCH ×5 (02:07→20:59)
[2017-01-06 05:27] LABS: BASOPHILS % 0.4 % (0.0-2.0); EOSINOPHILS % 1.2 % (0.0-5.0); HEMOGLOBIN. 8.8 g/dL (12.0-16.0); LYMPHOCYTES % 7.2 % (20.0-50.0); MEAN CORPUSCULAR HEMOGLOBIN 29.1 pg (28.0-32.0); MEAN CORPUSCULAR VOLUME 89.6 fL (81.0-99.0); MONOCYTES % 7.5 % (2.0-8.0); NEUTROPHILS % 83.7 % (40.0-76.0); PLATELET 282 x1000/uL (130-400); RED BLOOD CELL COUNT 3.02 mill/uL (4.2-5.4); RED CELL DISTRIBUTION WIDTH 14.7 % (11.6-14.6)
[2017-01-06] MEDS: LEVOTHYROXINE SODIUM 100 MCG/ VIAL IV SCH (08:21)
[2017-01-06] MEDS: FUROSEMIDE 40MG/4ML VIAL IV SCH ×3 (08:21→17:23)
[2017-01-06] MEDS: FAMOTIDINE 20MG/2ML VIAL IV SCH (08:21)
[2017-01-06] MEDS: ASPIRIN 81MG EC TABLET PO SCH (08:22)
[2017-01-06] MEDS: MICONAZOLE NITRATE 2% OINT 71GM TOP SCH ×2 (08:23→21:55)
[2017-01-06 09:34] LABS: BG BASE EXCESS 5.6 mmol/L (-2.0-2.0); BG CARBOXYHEMOGLOBIN 0.8 % (0.5-1.5); BG DEOXYHEMOGLOBIN 4.1 % (0.0-5.0); BG FRACTION INSPIRED OXYGEN 32; BG HCO3 ACT 33.1 mmol/L (22.0-26.0); BG METHEMOGLOBIN 0.6 % (0.0-1.5); BG OXYGEN SATURATION 95.8 % (92.0-98.5); BG OXYHEMOGLOBIN 94.5 % (94.0-97.0); BG PCO2 68.1 mmHg (35.0-45.0); BG PH 7.304 (7.350-7.450); BG SAMPLE SITE RIGHT RADIAL; BG TOTAL HEMOGLOBIN 8.5 g/dL (12.0-18.0); BG VENT MODE NASAL CANNULA
[2017-01-06] MEDS ORDERED: KCL 20MEQ/100ML PREMIX 100 ML IV NR (11:00)
[2017-01-06] MEDS ORDERED: FENTANYL CITRATE/PF 50MCG/ML 2ML VIAL ONE (15:57)
[2017-01-06] MEDS ORDERED: MIDAZOLAM HCL 5 MG/5 ML VIAL ONE (15:57)
[2017-01-06] MEDS ORDERED: SIMETHICONE 40 MG/0.6 ML 30ML ONE (15:57)
[2017-01-06] MEDS ORDERED: CEFAZOLIN 1000MG PREMIX 50 ML IV NR (16:00)
[2017-01-06] MEDS ORDERED: MIDAZOLAM HCL 5 MG/5 ML VIAL IV PRN (16:16)
[2017-01-06 16:28] LABS: INR 1.1; PARTIAL THROMBOPLASTIN TIME 30.7 sec (24.0-34.0); PROTHROMBIN TIME 11.4 sec
[2017-01-06] MEDS: DEXTROSE 5% WATER 1,000 ML IV SCH (22:01)
[2017-01-07] VITALS (70 sets, daily range): BP systolic 65–135; BP diastolic 34–91
[2017-01-07] MEDS: IPRATROPIUM/ALBUTEROL 0.5-3(2.5)MG/3ML NEB HHN SCH ×5 (02:19→20:15)
[2017-01-07 07:40] LABS: BASOPHILS % 0.5 % (0.0-2.0); EOSINOPHILS % 1.3 % (0.0-5.0); HEMATOCRIT. 23.8 % (36.0-48.0); HEMOGLOBIN. 7.8 g/dL (12.0-16.0); LYMPHOCYTES % 10.8 % (20.0-50.0); MEAN CORPUSCULAR HEMOGLOBIN 29.2 pg (28.0-32.0); MEAN CORPUSCULAR VOLUME 88.9 fL (81.0-99.0); MEAN PLATELET VOLUME 8.5 fl (7.4-10.4); MONOCYTES % 5.9 % (2.0-8.0); NEUTROPHILS % 81.5 % (40.0-76.0); PLATELET 290 x1000/uL (130-400); RED BLOOD CELL COUNT 2.67 mill/uL (4.2-5.4)
[2017-01-07 08:00] LABS: BG BASE EXCESS 4.4 mmol/L (-2.0-2.0); BG BILEVEL POS AIRWAY PRESSURE 15/5; BG CARBOXYHEMOGLOBIN 0.4 % (0.5-1.5); BG DEOXYHEMOGLOBIN 8.6 % (0.0-5.0); BG HCO3 ACT 30.3 mmol/L (22.0-26.0); BG METHEMOGLOBIN 0.3 % (0.0-1.5); BG OXYGEN SATURATION 91.3 % (92.0-98.5); BG OXYHEMOGLOBIN 90.7 % (94.0-97.0); BG PCO2 52.4 mmHg (35.0-45.0); BG PO2 59.1 mmHg (75.0-100.0); BG SAMPLE SITE RIGHT RADIAL; BG TOTAL HEMOGLOBIN 9.6 g/dL (12.0-18.0); BG VENT MODE MASK - BIPAP; BG VENT RATE 18 set
[2017-01-07] MEDS ORDERED: KCL 20MEQ/100ML PREMIX 100 ML IV ONE (08:45)
[2017-01-07] MEDS: FUROSEMIDE 40MG/4ML VIAL IV SCH ×4 (09:00→17:00)
[2017-01-07] MEDS: LEVOTHYROXINE SODIUM 100 MCG/ VIAL IV SCH (09:00)
[2017-01-07] MEDS: ASPIRIN 81MG EC TABLET PO SCH (09:00)
[2017-01-07] MEDS ORDERED: AMIODARONE HCL 900 MG in DEXT 5% WATER 500 ML IV PRN (09:45)
[2017-01-07] MEDS: AMIODARONE HCL 900 MG in DEXT 5% WATER 482 ML IV PRN (10:03)
[2017-01-07 10:25] LABS: BG BASE EXCESS 5.1 mmol/L (-2.0-2.0); BG CARBOXYHEMOGLOBIN 0.3 % (0.5-1.5); BG DEOXYHEMOGLOBIN 1.1 % (0.0-5.0); BG HCO3 ACT 34.1 mmol/L (22.0-26.0); BG METHEMOGLOBIN 0.1 % (0.0-1.5); BG OXYGEN SATURATION 98.9 % (92.0-98.5); BG OXYHEMOGLOBIN 98.5 % (94.0-97.0); BG PCO2 82.8 mmHg (35.0-45.0); BG PH 7.233 (7.350-7.450); BG PO2 222.5 mmHg (75.0-100.0); BG SAMPLE SITE RIGHT RADIAL; BG TOTAL HEMOGLOBIN 9.3 g/dL (12.0-18.0); BG VENT MODE MASK - NRB
[2017-01-07] MEDS ORDERED: PROPOFOL 10MG/ML 100ML 100 ML IV PRN (11:45)
[2017-01-07] MEDS ORDERED: PIPERACILLIN/TAZ 2.25G PREMIX 50 ML IV SCH (12:00)
[2017-01-07 12:45] LABS: BG BASE EXCESS 4.3 mmol/L (-2.0-2.0); BG CARBOXYHEMOGLOBIN 0.3 % (0.5-1.5); BG DEOXYHEMOGLOBIN 2.3 % (0.0-5.0); BG HCO3 ACT 28.4 mmol/L (22.0-26.0); BG METHEMOGLOBIN 0.3 % (0.0-1.5); BG OXYGEN SATURATION 97.7 % (92.0-98.5); BG OXYHEMOGLOBIN 97.1 % (94.0-97.0); BG PCO2 40.9 mmHg (35.0-45.0); BG SAMPLE SITE RIGHT RADIAL; BG TIDAL VOLUME(mL) 500 mL; BG TOTAL HEMOGLOBIN 9.4 g/dL (12.0-18.0); BG VENT MODE VENT - A/C; BG VENT RATE 14 set
[2017-01-07] MEDS: FAMOTIDINE 20MG/2ML VIAL IV SCH (13:28)
[2017-01-07] MEDS: MICONAZOLE NITRATE 2% OINT 71GM TOP SCH ×2 (13:29→21:25)
[2017-01-07] MEDS ORDERED: ETOMIDATE 2MG/ML 10ML VIAL IV ONE (14:21)
[2017-01-07] MEDS ORDERED: STERILE WATER FOR INJECTION 10ML VIAL ONE (14:21)
[2017-01-07] MEDS ORDERED: VECURONIUM BROMIDE 10 MG/VIAL IV ONE (14:21)
[2017-01-07] MEDS ORDERED: CEFEPIME 1,000 MG in DEXTROSE 5% WATER 50 ML IV SCH (14:30)
[2017-01-07] MEDS ORDERED: VANCOMYCIN 1 G PREMIX 200 ML IV SCH (15:00)
[2017-01-08] VITALS (93 sets, daily range): BP systolic 66–143; BP diastolic 27–96
[2017-01-08] MEDS: ACETAMINOPHEN 325MG TABLET PO PRN ×2 (00:19→09:34)
[2017-01-08] MEDS: IPRATROPIUM/ALBUTEROL 0.5-3(2.5)MG/3ML NEB HHN SCH ×5 (04:34→20:22)
[2017-01-08] MEDS: AMIODARONE HCL 900 MG in DEXT 5% WATER 482 ML IV PRN ×2 (04:55→21:49)
[2017-01-08 05:59] LABS: HEMATOCRIT. 25.8 % (36.0-48.0); HEMOGLOBIN. 8.6 g/dL (12.0-16.0); MEAN CORPUSCULAR HEMOGLOBIN 28.5 pg (28.0-32.0); MEAN CORPUSCULAR VOLUME 85.5 fL (81.0-99.0); MEAN PLATELET VOLUME 8.8 fl (7.4-10.4); PLATELET 255 x1000/uL (130-400); RED BLOOD CELL COUNT 3.02 mill/uL (4.2-5.4); RED CELL DISTRIBUTION WIDTH 14.8 % (11.6-14.6)
[2017-01-08 07:54] LABS: PLATELET ESTIMATE NORMAL
[2017-01-08 08:14] LABS: PHOSPHORUS 0.7 mg/dL (2.5-4.9)
[2017-01-08 08:47] LABS: T4 FREE 1.08 ng/dL (0.76-1.46)
[2017-01-08] MEDS ORDERED: POTASSIUM PHOS,M-BASIC-D-BASIC 30 MMOL in DEXT 5% WATER 500 ML IV SCH (09:00)
[2017-01-08] MEDS ORDERED: MAGNESIUM 2 G PREMIX 50 ML IV SCH (09:00)
[2017-01-08] MEDS: FUROSEMIDE 40MG/4ML VIAL IV SCH ×3 (09:33→18:28)
[2017-01-08] MEDS: LEVOTHYROXINE SODIUM 100 MCG/ VIAL IV SCH (09:34)
[2017-01-08] MEDS: ASPIRIN 81MG EC TABLET PO SCH (09:34)
[2017-01-08] MEDS: MORPHINE SULFATE 2 MG/ML CPJ (NOT FOR IM USE) IV PRN (09:36)
[2017-01-08] MEDS ORDERED: POTASSIUM CHLORIDE INJ 40 MEQ in DEXT 5% WATER 250 ML IV SCH (10:00)
[2017-01-08] MEDS ORDERED: ALBUMIN HUMAN 25GM/100ML (25%) IV NR ×2 (10:45→14:44)
[2017-01-08] MEDS: PANTOPRAZOLE SODIUM 40 MG/VIAL IV SCH (10:48)
[2017-01-08 11:42] LABS: BG BASE EXCESS 1.8 mmol/L (-2.0-2.0); BG CARBOXYHEMOGLOBIN 0.2 % (0.5-1.5); BG DEOXYHEMOGLOBIN 5.7 % (0.0-5.0); BG FRACTION INSPIRED OXYGEN 40; BG HCO3 ACT 23.8 mmol/L (22.0-26.0); BG METHEMOGLOBIN 0.2 % (0.0-1.5); BG OXYGEN SATURATION 94.3 % (92.0-98.5); BG OXYHEMOGLOBIN 93.9 % (94.0-97.0); BG PCO2 27.9 mmHg (35.0-45.0); BG PH 7.548 (7.350-7.450); BG PO2 66.3 mmHg (75.0-100.0); BG SAMPLE SITE LEFT BRACHIAL; BG TIDAL VOLUME(mL) 500 mL; BG TOTAL HEMOGLOBIN 9.4 g/dL (12.0-18.0); BG VENT MODE VENT - A/C; BG VENT RATE 12 set
[2017-01-08 12:21] LABS: BG BASE EXCESS 3.9 mmol/L (-2.0-2.0); BG CARBOXYHEMOGLOBIN 0.4 % (0.5-1.5); BG DEOXYHEMOGLOBIN 3.3 % (0.0-5.0); BG FRACTION INSPIRED OXYGEN 50; BG HCO3 ACT 28.1 mmol/L (22.0-26.0); BG METHEMOGLOBIN 0.2 % (0.0-1.5); BG OXYGEN SATURATION 96.7 % (92.0-98.5); BG OXYHEMOGLOBIN 96.1 % (94.0-97.0); BG PCO2 40.5 mmHg (35.0-45.0); BG PH 7.459 (7.350-7.450); BG PO2 87.1 mmHg (75.0-100.0); BG SAMPLE SITE RIGHT RADIAL; BG TIDAL VOLUME(mL) 450 mL; BG TOTAL HEMOGLOBIN 9.2 g/dL (12.0-18.0); BG VENT MODE VENT - A/C; BG VENT RATE 10 set
[2017-01-08] MEDS ORDERED: COLISTIMETHATE SODIUM IV SCH (13:00)
[2017-01-08] MEDS ORDERED: SODIUM CHLORIDE 0.9% IV SCH (13:00)
[2017-01-08] MEDS ORDERED: PROPOFOL 10MG/ML 100ML 100 ML IV PRN (13:45)
[2017-01-08] MEDS ORDERED: VANCOMYCIN 750 MG PREMIX 150 ML IV NR (14:00)
[2017-01-08] MEDS: PHENYLEPHRINE 40 MG in DEXT 5% WATER 246 ML IV PRN ×2 (16:18→22:37)
[2017-01-08] MEDS: MEROPENEM 500 MG in SODIUM CHLORIDE 0.9% 50 ML IV SCH (16:19)
[2017-01-08 18:46] LABS: PHOSPHORUS 2.1 mg/dL (2.5-4.9)
[2017-01-08 18:49] LABS: CREATINE KINASE MB FRACTION 0.8 ng/mL (0.5-3.6); TROPONIN I 0.15 ng/mL (0.00-0.04)
[2017-01-09] VITALS (87 sets, daily range): BP systolic 85–130; BP diastolic 45–85
[2017-01-09] MEDS: IPRATROPIUM/ALBUTEROL 0.5-3(2.5)MG/3ML NEB HHN SCH ×6 (00:29→20:10)
[2017-01-09 02:38] LABS: CLARITY URINE CLOUDY (CLEAR); COLOR URINE DARK YELLOW (YELLOW); GLUCOSE URINE NEGATIVE (NEGATIVE); KETONES URINE TRACE (NEGATIVE); LEUKOCYTE ESTERASE URINE 2+ (NEGATIVE); NITRITE URINE POSITIVE (NEGATIVE); OCCULT BLOOD URINE TRACE (NEGATIVE); PROTEIN URINE 1+ (NEGATIVE); SPECIFIC GRAVITY URINE 1.021 (1.005-1.030); UROBILINOGEN URINE 0.2 E.U./dL (0.2-1.0)
[2017-01-09 02:45] LABS: CREATINE KINASE MB FRACTION 1.2 ng/mL (0.5-3.6); TROPONIN I 0.09 ng/mL (0.00-0.04)
[2017-01-09] MEDS: PHENYLEPHRINE 80 MG in DEXT 5% WATER 500 ML IV PRN ×2 (04:29→23:15)
[2017-01-09 05:45] LABS: BASOPHILS % 0.9 % (0.0-2.0); EOSINOPHILS % 0.5 % (0.0-5.0); HEMOGLOBIN. 9.1 g/dL (12.0-16.0); LYMPHOCYTES % 10.4 % (20.0-50.0); MEAN CORPUSCULAR HEMOGLOBIN 28.5 pg (28.0-32.0); MEAN CORPUSCULAR VOLUME 87.2 fL (81.0-99.0); MEAN PLATELET VOLUME 8.6 fl (7.4-10.4); MONOCYTES % 6.7 % (2.0-8.0); NEUTROPHILS % 81.5 % (40.0-76.0); PLATELET 352 x1000/uL (130-400); RED BLOOD CELL COUNT 3.21 mill/uL (4.2-5.4); RED CELL DISTRIBUTION WIDTH 15.5 % (11.6-14.6)
[2017-01-09] MEDS ORDERED: DEXTROSE 50% WATER 50ML SYRINGE IV PRN (08:00)
[2017-01-09 08:01] LABS: BG BASE EXCESS 0.9 mmol/L (-2.0-2.0); BG CARBOXYHEMOGLOBIN 0.4 % (0.5-1.5); BG DEOXYHEMOGLOBIN 4.9 % (0.0-5.0); BG FRACTION INSPIRED OXYGEN 50; BG METHEMOGLOBIN 0.4 % (0.0-1.5); BG OXYGEN SATURATION 95.1 % (92.0-98.5); BG OXYHEMOGLOBIN 94.3 % (94.0-97.0); BG PCO2 37.7 mmHg (35.0-45.0); BG PO2 73.4 mmHg (75.0-100.0); BG SAMPLE SITE LEFT BRACHIAL; BG TIDAL VOLUME(mL) 450 mL; BG TOTAL HEMOGLOBIN 9.3 g/dL (12.0-18.0); BG VENT MODE VENT - A/C; BG VENT RATE 10 set
[2017-01-09 08:04] LABS: PHOSPHORUS 1.9 mg/dL (2.5-4.9)
[2017-01-09] MEDS: BLOOD SUGAR DIAGNOSTIC STRIP TEST SCH ×4 (08:45→23:09)
[2017-01-09] MEDS: INSULIN LISPRO 100 UNITS/ML SUBCUT SCH ×4 (08:57→23:10)
[2017-01-09] MEDS: PANTOPRAZOLE SODIUM 40 MG/VIAL IV SCH (08:58)
[2017-01-09] MEDS: MEROPENEM 500 MG in SODIUM CHLORIDE 0.9% 50 ML IV SCH (08:58)
[2017-01-09] MEDS: FUROSEMIDE 40MG/4ML VIAL IV SCH ×3 (08:58→17:45)
[2017-01-09] MEDS: LEVOTHYROXINE SODIUM 100 MCG/ VIAL IV SCH (08:59)
[2017-01-09] MEDS: ASPIRIN 81MG TABLET PEG SCH (09:08)
[2017-01-09] MEDS: ENOXAPARIN 30MG/0.3ML SYR SUBCUT SCH (09:08)
[2017-01-09] MEDS ORDERED: DIGOXIN 500MCG/2ML AMP IV NR (09:30)
[2017-01-09 11:12] LABS: CREATINE KINASE MB FRACTION 0.5 ng/mL (0.5-3.6); TROPONIN I 0.15 ng/mL (0.00-0.04)
[2017-01-09] MEDS ORDERED: POTASSIUM PHOS,M-BASIC-D-BASIC 10 MMOL in DEXT 5% WATER 246.6667 ML IV NR (11:30)
[2017-01-09] MEDS: ACETAMINOPHEN 325MG TABLET PO PRN ×2 (12:31→23:15)
[2017-01-09] MEDS: AMIODARONE HCL 900 MG in DEXT 5% WATER 482 ML IV PRN (14:13)
[2017-01-10] VITALS (99 sets, daily range): BP systolic 79–118; BP diastolic 36–78
[2017-01-10] MEDS ORDERED: ALBUMIN HUMAN 25GM/100ML (25%) IV ONE (00:30)
[2017-01-10] MEDS ORDERED: ALBUMIN HUMAN 25GM/100ML (25%) IV PRN (00:30)
[2017-01-10] MEDS: IPRATROPIUM/ALBUTEROL 0.5-3(2.5)MG/3ML NEB HHN SCH ×6 (00:34→21:04)
[2017-01-10] MEDS ORDERED: ALBUMIN HUMAN 25GM/100ML (25%) IV NR (00:45)
[2017-01-10 04:55] LABS: BASOPHILS % 0.5 % (0.0-2.0); EOSINOPHILS % 1.1 % (0.0-5.0); HEMATOCRIT. 24.1 % (36.0-48.0); HEMOGLOBIN. 8.1 g/dL (12.0-16.0); LYMPHOCYTES % 10.6 % (20.0-50.0); MEAN CORPUSCULAR HEMOGLOBIN 28.9 pg (28.0-32.0); MEAN CORPUSCULAR VOLUME 86.2 fL (81.0-99.0); MONOCYTES % 6.5 % (2.0-8.0); NEUTROPHILS % 81.3 % (40.0-76.0); PLATELET 194 x1000/uL (130-400); RED CELL DISTRIBUTION WIDTH 15.2 % (11.6-14.6)
[2017-01-10] MEDS: BLOOD SUGAR DIAGNOSTIC STRIP TEST SCH ×3 (05:15→17:50)
[2017-01-10] MEDS: AMIODARONE HCL 900 MG in DEXT 5% WATER 482 ML IV PRN ×2 (05:16→20:23)
[2017-01-10] MEDS: INSULIN LISPRO 100 UNITS/ML SUBCUT SCH ×3 (05:16→17:50)
[2017-01-10 07:52] LABS: PHOSPHORUS 2.3 mg/dL (2.5-4.9)
[2017-01-10] MEDS: LEVOTHYROXINE SODIUM 100 MCG/ VIAL IV SCH (09:12)
[2017-01-10] MEDS: PANTOPRAZOLE SODIUM 40 MG/VIAL IV SCH (09:12)
[2017-01-10] MEDS: FUROSEMIDE 40MG/4ML VIAL IV SCH ×2 (09:13→20:20)
[2017-01-10] MEDS: ASPIRIN 81MG TABLET PEG SCH (09:13)
[2017-01-10] MEDS: ENOXAPARIN 30MG/0.3ML SYR SUBCUT SCH (09:13)
[2017-01-10] MEDS ORDERED: MAGNESIUM 2 G PREMIX 50 ML IV SCH (09:30)
[2017-01-10] MEDS ORDERED: HEPARIN SODIUM 1,000 UNIT/1ML VIAL IV NR (09:30)
[2017-01-10] MEDS ORDERED: MAGNESIUM 2 G PREMIX 50 ML IV ONE (09:45)
[2017-01-10] MEDS: MEROPENEM 500 MG in SODIUM CHLORIDE 0.9% 50 ML IV SCH (10:36)
[2017-01-10] MEDS: MORPHINE SULFATE 2 MG/ML CPJ (NOT FOR IM USE) IV PRN ×2 (11:24→16:45)
[2017-01-10] MEDS: ACETAMINOPHEN 325MG TABLET PO PRN (13:13)
[2017-01-10] MEDS ORDERED: DIGOXIN 500MCG/2ML AMP IV SCH (13:30)
[2017-01-10] MEDS ORDERED: PHENYLEPHRINE 40 MG in SODIUM CHLORIDE 0.9% 250 ML IV PRN (13:30)
[2017-01-10] MEDS ORDERED: VANCOMYCIN 1250MG in DEXTROSE 5% WATER 250ML IV NR (14:00)
[2017-01-10] MEDS ORDERED: VANCOMYCIN 1,250 MG in SODIUM CHLORIDE 0.9% 250 ML IV NR (15:00)
[2017-01-10] MEDS: PHENYLEPHRINE 40 MG in SODIUM CHLORIDE 0.9% 246 ML IV PRN (15:03)
[2017-01-10] MEDS: COLISTIMETHATE SODIUM 150MG/VIAL INH SCH (21:09)
[2017-01-11] VITALS (64 sets, daily range): BP systolic 91–121; BP diastolic 33–85
[2017-01-11] MEDS: BLOOD SUGAR DIAGNOSTIC STRIP TEST SCH ×4 (00:09→23:58)
[2017-01-11] MEDS: IPRATROPIUM/ALBUTEROL 0.5-3(2.5)MG/3ML NEB HHN SCH ×6 (00:51→20:07)
[2017-01-11] MEDS: COLISTIMETHATE SODIUM 150MG/VIAL INH SCH ×2 (04:00→14:44)
[2017-01-11 04:41] LABS: BASOPHILS % 0.6 % (0.0-2.0); EOSINOPHILS % 1.4 % (0.0-5.0); HEMATOCRIT. 25.6 % (36.0-48.0); HEMOGLOBIN. 8.4 g/dL (12.0-16.0); LYMPHOCYTES % 8.9 % (20.0-50.0); MEAN CORPUSCULAR HEMOGLOBIN 28.6 pg (28.0-32.0); MEAN CORPUSCULAR VOLUME 87.1 fL (81.0-99.0); MEAN PLATELET VOLUME 8.5 fl (7.4-10.4); MONOCYTES % 6.2 % (2.0-8.0); NEUTROPHILS % 82.9 % (40.0-76.0); PLATELET 219 x1000/uL (130-400); RED BLOOD CELL COUNT 2.94 mill/uL (4.2-5.4); RED CELL DISTRIBUTION WIDTH 15.3 % (11.6-14.6)
[2017-01-11] MEDS: INSULIN LISPRO 100 UNITS/ML SUBCUT SCH ×4 (05:35→23:59)
[2017-01-11] MEDS: PHENYLEPHRINE 40 MG in SODIUM CHLORIDE 0.9% 246 ML IV PRN ×2 (06:04→23:07)
[2017-01-11] MEDS: ACETAMINOPHEN 325MG TABLET PO PRN ×2 (06:43→17:20)
[2017-01-11 08:01] LABS: BG BASE EXCESS 0.2 mmol/L (-2.0-2.0); BG CARBOXYHEMOGLOBIN 0.3 % (0.5-1.5); BG DEOXYHEMOGLOBIN 3.1 % (0.0-5.0); BG FRACTION INSPIRED OXYGEN 50; BG HCO3 ACT 24.5 mmol/L (22.0-26.0); BG METHEMOGLOBIN 0.8 % (0.0-1.5); BG OXYGEN SATURATION 96.9 % (92.0-98.5); BG OXYHEMOGLOBIN 95.8 % (94.0-97.0); BG PCO2 37.9 mmHg (35.0-45.0); BG PH 7.428 (7.350-7.450); BG PO2 90.9 mmHg (75.0-100.0); BG SAMPLE SITE RIGHT RADIAL; BG TIDAL VOLUME(mL) 450 mL; BG TOTAL HEMOGLOBIN 8.6 g/dL (12.0-18.0); BG VENT MODE VENT - A/C; BG VENT RATE 10 set
[2017-01-11 08:45] LABS: PHOSPHORUS 1.7 mg/dL (2.5-4.9)
[2017-01-11] MEDS: MEROPENEM 500 MG in SODIUM CHLORIDE 0.9% 50 ML IV SCH (08:51)
[2017-01-11] MEDS: PANTOPRAZOLE SODIUM 40 MG/VIAL IV SCH (08:51)
[2017-01-11] MEDS: ASPIRIN 81MG TABLET PEG SCH (08:51)
[2017-01-11] MEDS: ENOXAPARIN 30MG/0.3ML SYR SUBCUT SCH (08:51)
[2017-01-11] MEDS: FUROSEMIDE 40MG/4ML VIAL IV SCH ×2 (08:51→21:26)
[2017-01-11] MEDS: LEVOTHYROXINE SODIUM 100 MCG/ VIAL IV SCH (08:51)
[2017-01-11] MEDS: AMIODARONE HCL 200 MG TABLET PO SCH (09:00)
[2017-01-11] MEDS ORDERED: SODIUM PHOS,M-BASIC-D-BASIC 10 MM in DEXT 5% WATER 246.6667 ML IV NR (11:00)
[2017-01-11] MEDS ORDERED: ALBUMIN HUMAN 25GM/100ML (25%) IV ONE (11:00)
[2017-01-11] MEDS ORDERED: ALBUMIN HUMAN 25GM/100ML (25%) IV NR (11:15)
[2017-01-11] MEDS: MORPHINE SULFATE 2 MG/ML CPJ (NOT FOR IM USE) IV PRN (21:56)
[2017-01-12] VITALS (76 sets, daily range): BP systolic 85–118; BP diastolic 36–93
[2017-01-12] MEDS: IPRATROPIUM/ALBUTEROL 0.5-3(2.5)MG/3ML NEB HHN SCH ×6 (00:21→20:03)
[2017-01-12] MEDS: COLISTIMETHATE SODIUM 150MG/VIAL INH SCH ×3 (04:15→17:07)
[2017-01-12] MEDS: MORPHINE SULFATE 2 MG/ML CPJ (NOT FOR IM USE) IV PRN ×2 (04:36→18:17)
[2017-01-12 05:26] LABS: BASOPHILS % 0.6 % (0.0-2.0); EOSINOPHILS % 1.5 % (0.0-5.0); HEMATOCRIT. 22.9 % (36.0-48.0); HEMOGLOBIN. 7.5 g/dL (12.0-16.0); LYMPHOCYTES % 9.8 % (20.0-50.0); MEAN CORPUSCULAR HEMOGLOBIN 28.6 pg (28.0-32.0); MEAN CORPUSCULAR VOLUME 87.4 fL (81.0-99.0); MEAN PLATELET VOLUME 8.8 fl (7.4-10.4); MONOCYTES % 6.7 % (2.0-8.0); NEUTROPHILS % 81.4 % (40.0-76.0); PLATELET 169 x1000/uL (130-400); RED BLOOD CELL COUNT 2.62 mill/uL (4.2-5.4); RED CELL DISTRIBUTION WIDTH 15.7 % (11.6-14.6)
[2017-01-12] MEDS: INSULIN LISPRO 100 UNITS/ML SUBCUT SCH ×5 (05:32→23:55)
[2017-01-12] MEDS: BLOOD SUGAR DIAGNOSTIC STRIP TEST SCH ×5 (05:32→23:55)
[2017-01-12] MEDS: ACETAMINOPHEN 325MG TABLET PO PRN ×3 (06:35→22:31)
[2017-01-12 07:40] LABS: PHOSPHORUS 1.6 mg/dL (2.5-4.9)
[2017-01-12] MEDS: AMIODARONE HCL 200 MG TABLET PO SCH (08:27)
[2017-01-12] MEDS: MEROPENEM 500 MG in SODIUM CHLORIDE 0.9% 50 ML IV SCH (08:27)
[2017-01-12] MEDS: LEVOTHYROXINE SODIUM 100 MCG/ VIAL IV SCH (08:27)
[2017-01-12] MEDS: PANTOPRAZOLE SODIUM 40 MG/VIAL IV SCH (08:27)
[2017-01-12] MEDS: ASPIRIN 81MG TABLET PEG SCH (08:27)
[2017-01-12] MEDS: FUROSEMIDE 40MG/4ML VIAL IV SCH ×2 (08:27→20:51)
[2017-01-12] MEDS: ENOXAPARIN 30MG/0.3ML SYR SUBCUT SCH (08:28)
[2017-01-12] MEDS ORDERED: SODIUM PHOS,M-BASIC-D-BASIC 15 MM in DEXT 5% WATER 245 ML IV NR (10:30)
[2017-01-12] MEDS ORDERED: LORAZEPAM 2MG/ML CPJ IV PRN ×2 (19:30)
[2017-01-13] VITALS (54 sets, daily range): BP systolic 89–152; BP diastolic 40–79
[2017-01-13] MEDS: COLISTIMETHATE SODIUM 150MG/VIAL INH SCH ×2 (04:01→12:05)
[2017-01-13] MEDS: IPRATROPIUM/ALBUTEROL 0.5-3(2.5)MG/3ML NEB HHN SCH ×5 (04:01→19:54)
[2017-01-13 05:29] LABS: HEMATOCRIT. 21.8 % (36.0-48.0); HEMOGLOBIN. 7.2 g/dL (12.0-16.0); MEAN CORPUSCULAR HEMOGLOBIN 28.9 pg (28.0-32.0); MEAN CORPUSCULAR VOLUME 87.8 fL (81.0-99.0); MEAN PLATELET VOLUME 8.7 fl (7.4-10.4); PLATELET 126 x1000/uL (130-400); RED BLOOD CELL COUNT 2.48 mill/uL (4.2-5.4); RED CELL DISTRIBUTION WIDTH 15.7 % (11.6-14.6)
[2017-01-13 05:44] LABS: PHOSPHORUS 2.4 mg/dL (2.5-4.9)
[2017-01-13] MEDS: INSULIN LISPRO 100 UNITS/ML SUBCUT SCH ×3 (06:00→17:00)
[2017-01-13] MEDS: ACETAMINOPHEN 325MG TABLET PO PRN (06:19)
[2017-01-13] MEDS: BLOOD SUGAR DIAGNOSTIC STRIP TEST SCH ×4 (06:30→23:55)
[2017-01-13] MEDS: LEVOTHYROXINE SODIUM 100 MCG/ VIAL IV SCH (08:01)
[2017-01-13] MEDS: AMIODARONE HCL 200 MG TABLET PO SCH (08:01)
[2017-01-13] MEDS: MEROPENEM 500 MG in SODIUM CHLORIDE 0.9% 50 ML IV SCH (08:01)
[2017-01-13] MEDS: FUROSEMIDE 40MG/4ML VIAL IV SCH ×2 (08:01→21:36)
[2017-01-13] MEDS: PANTOPRAZOLE SODIUM 40 MG/VIAL IV SCH (08:01)
[2017-01-13 08:30] LABS: NUCLEATED RED BLOOD CELLS 1 /100 WBC
[2017-01-13 08:31] LABS: PLATELET ESTIMATE SLIGHTLY DECREASED
[2017-01-13] MEDS: ASPIRIN 81MG TABLET PEG SCH (08:47)
[2017-01-13] MEDS ORDERED: ALBUMIN HUMAN 25GM/100ML (25%) IV NR (11:00)
[2017-01-13 15:17] LABS: INR 1.1
[2017-01-13] MEDS: DEXT 5%/0.45% NACL 1000ML 1,000 ML IV SCH (23:55)
[2017-01-14] VITALS (52 sets, daily range): BP systolic 86–144; BP diastolic 35–73
[2017-01-14] MEDS: IPRATROPIUM/ALBUTEROL 0.5-3(2.5)MG/3ML NEB HHN SCH ×6 (00:07→19:19)
[2017-01-14] MEDS: COLISTIMETHATE SODIUM 150MG/VIAL INH SCH ×3 (00:23→12:06)
[2017-01-14 05:26] LABS: HEMATOCRIT. 23.8 % (36.0-48.0); HEMOGLOBIN. 8.1 g/dL (12.0-16.0); MEAN CORPUSCULAR HEMOGLOBIN 29.3 pg (28.0-32.0); MEAN CORPUSCULAR VOLUME 85.6 fL (81.0-99.0); PLATELET 139 x1000/uL (130-400); RED BLOOD CELL COUNT 2.78 mill/uL (4.2-5.4); RED CELL DISTRIBUTION WIDTH 15.2 % (11.6-14.6)
[2017-01-14] MEDS: INSULIN LISPRO 100 UNITS/ML SUBCUT SCH ×4 (06:00→17:30)
[2017-01-14] MEDS: BLOOD SUGAR DIAGNOSTIC STRIP TEST SCH ×3 (06:13→17:30)
[2017-01-14 07:15] LABS: PLATELET ESTIMATE NORMAL
[2017-01-14] MEDS: ACETAMINOPHEN 325MG TABLET PO PRN (07:21)
[2017-01-14] MEDS: AMIODARONE HCL 200 MG TABLET PO SCH (08:00)
[2017-01-14] MEDS: ASPIRIN 81MG TABLET PEG SCH (08:00)
[2017-01-14] MEDS: LEVOTHYROXINE SODIUM 100 MCG/ VIAL IV SCH (08:00)
[2017-01-14] MEDS: PANTOPRAZOLE SODIUM 40 MG/VIAL IV SCH (08:00)
[2017-01-14] MEDS: MEROPENEM 500 MG in SODIUM CHLORIDE 0.9% 50 ML IV SCH (08:01)
[2017-01-14] MEDS: FUROSEMIDE 40MG/4ML VIAL IV SCH ×2 (08:03→21:35)
[2017-01-14] MEDS: DEXT 5%/0.45% NACL 1000ML 1,000 ML IV SCH (12:46)
[2017-01-15] VITALS (45 sets, daily range): BP systolic 93–132; BP diastolic 38–74
[2017-01-15] MEDS: BLOOD SUGAR DIAGNOSTIC STRIP TEST SCH ×5 (00:11→23:50)
[2017-01-15] MEDS: IPRATROPIUM/ALBUTEROL 0.5-3(2.5)MG/3ML NEB HHN SCH ×6 (00:41→20:11)
[2017-01-15] MEDS: INSULIN LISPRO 100 UNITS/ML SUBCUT SCH ×5 (06:00→23:50)
[2017-01-15] MEDS ORDERED: ALBUMIN HUMAN 25GM/100ML (25%) IV NR (06:00)
[2017-01-15] MEDS: COLISTIMETHATE SODIUM 150MG/VIAL INH SCH ×2 (09:18→16:02)
[2017-01-15] MEDS ORDERED: HEPARIN SODIUM 1,000 UNIT/1ML VIAL IV NR (10:15)
[2017-01-15] MEDS: PANTOPRAZOLE SODIUM 40 MG/VIAL IV SCH (11:46)
[2017-01-15] MEDS: MEROPENEM 500 MG in SODIUM CHLORIDE 0.9% 50 ML IV SCH (11:46)
[2017-01-15] MEDS: LEVOTHYROXINE SODIUM 100 MCG/ VIAL IV SCH (11:47)
[2017-01-15] MEDS: ASPIRIN 81MG TABLET PEG SCH (11:47)
[2017-01-15] MEDS: FUROSEMIDE 40MG/4ML VIAL IV SCH ×2 (11:47→21:35)
[2017-01-15] MEDS: AMIODARONE HCL 200 MG TABLET PO SCH (11:48)
[2017-01-15] MEDS: ACETAMINOPHEN 325MG TABLET PO PRN (13:42)
[2017-01-16] VITALS (13 sets, daily range): BP systolic 101–119; BP diastolic 39–82
[2017-01-16] MEDS: COLISTIMETHATE SODIUM 150MG/VIAL INH SCH ×3 (02:05→13:59)
[2017-01-16] MEDS: IPRATROPIUM/ALBUTEROL 0.5-3(2.5)MG/3ML NEB HHN SCH ×4 (03:25→20:14)
[2017-01-16] MEDS: BLOOD SUGAR DIAGNOSTIC STRIP TEST SCH ×3 (05:02→18:14)
[2017-01-16] MEDS: INSULIN LISPRO 100 UNITS/ML SUBCUT SCH ×3 (05:02→18:00)
[2017-01-16 07:43] LABS: BG BASE EXCESS 1.9 mmol/L (-2.0-2.0); BG CARBOXYHEMOGLOBIN 0.3 % (0.5-1.5); BG DEOXYHEMOGLOBIN 3.8 % (0.0-5.0); BG FRACTION INSPIRED OXYGEN 40; BG HCO3 ACT 26.2 mmol/L (22.0-26.0); BG METHEMOGLOBIN 0.3 % (0.0-1.5); BG OXYGEN SATURATION 96.2 % (92.0-98.5); BG OXYHEMOGLOBIN 95.6 % (94.0-97.0); BG PCO2 39.6 mmHg (35.0-45.0); BG PH 7.438 (7.350-7.450); BG PO2 81.2 mmHg (75.0-100.0); BG SAMPLE SITE RIGHT RADIAL; BG TIDAL VOLUME(mL) 450 mL; BG TOTAL HEMOGLOBIN 7.4 g/dL (12.0-18.0); BG VENT MODE VENT - A/C; BG VENT RATE 10 set
[2017-01-16] MEDS: LEVOTHYROXINE SODIUM 100 MCG/ VIAL IV SCH (08:51)
[2017-01-16] MEDS: FUROSEMIDE 40MG/4ML VIAL IV SCH ×2 (08:51→21:49)
[2017-01-16] MEDS: PANTOPRAZOLE SODIUM 40 MG/VIAL IV SCH (08:51)
[2017-01-16] MEDS: AMIODARONE HCL 200 MG TABLET PO SCH (08:52)
[2017-01-16] MEDS: ASPIRIN 81MG TABLET PEG SCH (08:52)
[2017-01-16] MEDS: MEROPENEM 500 MG in SODIUM CHLORIDE 0.9% 50 ML IV SCH (10:45)
[2017-01-16] MEDS ORDERED: VANCOMYCIN 1250MG in DEXTROSE 5% WATER 250ML IV NR (14:30)
[2017-01-17] VITALS (9 sets, daily range): BP systolic 92–121; BP diastolic 43–61
[2017-01-17] MEDS: IPRATROPIUM/ALBUTEROL 0.5-3(2.5)MG/3ML NEB HHN SCH ×5 (00:03→16:26)
[2017-01-17] MEDS: COLISTIMETHATE SODIUM 150MG/VIAL INH SCH ×2 (04:13→16:25)
[2017-01-17] MEDS: INSULIN LISPRO 100 UNITS/ML SUBCUT SCH ×3 (06:00→12:00)
[2017-01-17] MEDS: BLOOD SUGAR DIAGNOSTIC STRIP TEST SCH ×3 (06:00→12:00)
[2017-01-17] MEDS: MEROPENEM 500 MG in SODIUM CHLORIDE 0.9% 50 ML IV SCH (08:21)
[2017-01-17] MEDS: ASPIRIN 81MG TABLET PEG SCH (08:23)
[2017-01-17] MEDS: LEVOTHYROXINE SODIUM 100 MCG/ VIAL IV SCH (08:23)
[2017-01-17] MEDS: PANTOPRAZOLE SODIUM 40 MG/VIAL IV SCH (08:23)
[2017-01-17] MEDS: FUROSEMIDE 40MG/4ML VIAL IV SCH (08:23)
[2017-01-17] MEDS: AMIODARONE HCL 200 MG TABLET PO SCH (08:24)
[2017-01-17] MEDS: ACETAMINOPHEN 325MG TABLET PO PRN (13:54)
[2017-01-17] MEDS ORDERED: VANCOMYCIN 750 MG PREMIX 150 ML IV NR (16:00)
== END 2017-01-17 17:45 | DRG 4 ==
LOC: ER 15:06 → 5EST 19:09 → MICUSO 12-25 12:50 → 5EST 12-27 23:48 → CVICU 01-07 08:26 → 5EST 01-15 19:55
PROVIDERS: ADMIT Internal Medicine; ATTEND Internal Medicine
PROC: 30233N1 Transfusion of Nonautologous Red Blood Cells into Peripheral Vein, Percutaneous Approach (ICD-10-PCS; 2016-12-23)
PROC: 02H633Z Insertion of Infusion Device into Right Atrium, Percutaneous Approach (ICD-10-PCS; 2016-12-25)
PROC: B244ZZZ Ultrasonography of Right Heart (ICD-10-PCS; 2016-12-25)
PROC: 5A09557 Assistance with Respiratory Ventilation, Greater than 96 Consecutive Hours, Continuous Positive Airway Pressure (ICD-10-PCS; 2016-12-25)
PROC: 5A1D60Z (ICD-10-PCS; 2017-01-02)
PROC: 02HV33Z Insertion of Infusion Device into Superior Vena Cava, Percutaneous Approach (ICD-10-PCS; 2017-01-02)
PROC: B5181ZA Fluoroscopy of Superior Vena Cava using Low Osmolar Contrast, Guidance (ICD-10-PCS; 2017-01-02)
PROC: B548ZZA Ultrasonography of Superior Vena Cava, Guidance (ICD-10-PCS; 2017-01-02)
PROC: 0DH63UZ Insertion of Feeding Device into Stomach, Percutaneous Approach (ICD-10-PCS; principal; 2017-01-06 16:00)
PROC: 5A1955Z Respiratory Ventilation, Greater than 96 Consecutive Hours (ICD-10-PCS; 2017-01-07)
PROC: 0BH18EZ Insertion of Endotracheal Airway into Trachea, Via Natural or Artificial Opening Endoscopic (ICD-10-PCS; 2017-01-07)
PROC: 0B110F4 Bypass Trachea to Cutaneous with Tracheostomy Device, Open Approach (ICD-10-PCS; 2017-01-14)
PROC: 0BJ08ZZ Inspection of Tracheobronchial Tree, Via Natural or Artificial Opening Endoscopic (ICD-10-PCS; 2017-01-16)
DX: A41.59 Other Gram-negative sepsis (principal); I50.23 Acute on chronic systolic (congestive) heart failure; E43 Unspecified severe protein-calorie malnutrition; G93.41 Metabolic encephalopathy; J15.0 Pneumonia due to Klebsiella pneumoniae; J96.01 Acute respiratory failure with hypoxia; J69.0 Pneumonitis due to inhalation of food and vomit; N17.0 Acute kidney failure with tubular necrosis; I63.9 Cerebral infarction, unspecified; R65.21 Severe sepsis with septic shock; J96.02 Acute respiratory failure with hypercapnia; I13.0 Hypertensive heart and chronic kidney disease with heart failure and stage 1 through stage 4 chronic kidney disease, or unspecified chronic kidney disease; R18.8 Other ascites; L97.409 Non-pressure chronic ulcer of unspecified heel and midfoot with unspecified severity; E87.0 Hyperosmolality and hypernatremia; E87.1 Hypo-osmolality and hyponatremia; I42.9 Cardiomyopathy, unspecified; L97.419 Non-pressure chronic ulcer of right heel and midfoot with unspecified severity; L97.429 Non-pressure chronic ulcer of left heel and midfoot with unspecified severity; N39.0 Urinary tract infection, site not specified; Z68.42 Body mass index [BMI] 45.0-49.9, adult; R47.01 Aphasia; E03.9 Hypothyroidism, unspecified; D69.6 Thrombocytopenia, unspecified; D64.9 Anemia, unspecified; E78.5 Hyperlipidemia, unspecified; E83.39 Other disorders of phosphorus metabolism; E83.42 Hypomagnesemia; E87.6 Hypokalemia; I48.91 Unspecified atrial fibrillation; N18.9 Chronic kidney disease, unspecified; Z16.24 Resistance to multiple antibiotics; Z99.2 Dependence on renal dialysis; Z79.899 Other long term (current) drug therapy; I25.10 Atherosclerotic heart disease of native coronary artery without angina pectoris; R13.12 Dysphagia, oropharyngeal phase; L89.90 Pressure ulcer of unspecified site, unspecified stage
CPT/HCPCS: 36415; 36558; 36569; 36600; 51702; 70450; 70551; 71010; 74000; 76770; 76937; 77001; 78580; 80048; 80053; 80061; 80076; 80202; 81001; 82140; 82270; 82375; 82550; 82553; 82607; 82746; 82805; 82962; 83036; 83520; 83605; 83690; 83735; 83880; 84100; 84132; 84439; 84443; 84478; 84481; 84484; 85025; 85362; 85379; 85384; 85610; 85613; 85651; 85730; 85732; 86022; 86038; 86256; 86431; 86850; 86900; 86920; 87015; 87040; 87045; 87070; 87077; 87086; 87186; 87427; 87449; 87493; 89055; 92610; 92950; 93005; 93306; 93880; 93970; 94002; 94003; 94640; 94660; 94664; 96365; 97110; 97162; 97164; 97166; 97530; 99285; A4216; A6261; C1725; C1752; C1769; C9113; J0282; J0690; J0692; J0696; J0770; J1160; J1335; J1642; J1644; J1650; J1815; J1940; J1956; J2060; J2185; J2250; J2270; J2370; J2405; J2543; J2704; J2920; J3010; J3370; J3475; J3480; J3490; J7030; J7040; J7050; J7060; J7070; J7512; J7620; J8597; P9016; P9021; P9047; A4315